=== PATIENT | female | born 1995 | race Caucasian/White ===

== ENCOUNTER 2021-06-23 00:51 | Outpatient (CLI) | payer OTHER | END 2021-06-23 09:05 | disposition home or self-care (01) | LOC: GENOP 00:51 | DX: O47.1 False labor at or after 37 completed weeks of gestation (principal); O99.343 Other mental disorders complicating pregnancy, third trimester; F32.A Depression, unspecified; O99.013 Anemia complicating pregnancy, third trimester; D64.9 Anemia, unspecified; O99.891 Other specified diseases and conditions complicating pregnancy; N89.8 Other specified noninflammatory disorders of vagina; Z3A.38 38 weeks gestation of pregnancy | CPT/HCPCS: 81001; 83518; 96360; 96361 ==

== ENCOUNTER 2021-06-27 10:28 | Inpatient (IN) | payer OTHER ==
[~2021-06-27] VITALS: Ht 172.7 cm; Wt 107.0 kg
[2021-06-29 06:25] LABS: HEMOGLOBIN 11.4 gm/dl (12.3-15.3); RED BLOOD COUNT 3.92 M/UL (4.00-5.10); WHITE BLOOD COUNT 13.5 K/UL (4.5-11.0)
[2021-06-29] MEDS ORDERED: FERROUS SULFAT325 MG PO (19:19)
[2021-06-29] MEDS ORDERED: DOCUSATE SODIU100 MG PO (19:19)
[2021-06-29] MEDS ORDERED: IBUPROFEN600 MG PO (19:19)
[2021-06-30 06:01] LABS: HEMOGLOBIN 10.6 gm/dl (12.3-15.3)
== END 2021-07-01 15:37 | disposition home or self-care (01) | DRG 807 ==
LOC: LBRF 10:28 → OB 06-29 05:32
PROVIDERS: Obstetrics & Gynecology; ADMIT Obstetrics & Gynecology
PROC: 3E033VJ Introduction of Other Hormone into Peripheral Vein, Percutaneous Approach (ICD-10-PCS; principal; 2021-06-29)
PROC: 10E0XZZ Delivery of Products of Conception, External Approach (ICD-10-PCS; 2021-06-29)
PROC: 10907ZC Drainage of Amniotic Fluid, Therapeutic from Products of Conception, Via Natural or Artificial Opening (ICD-10-PCS; 2021-06-29)
PROC: 4A1HXCZ Monitoring of Products of Conception, Cardiac Rate, External Approach (ICD-10-PCS; 2021-06-29)
PROC: 3E0234Z Introduction of Serum, Toxoid and Vaccine into Muscle, Percutaneous Approach (ICD-10-PCS; 2021-06-29)
DX: O98.42 Viral hepatitis complicating childbirth (principal); Z37.0 Single live birth; B19.20 Unspecified viral hepatitis C without hepatic coma; Z20.822 Contact with and (suspected) exposure to COVID-19; Z3A.39 39 weeks gestation of pregnancy; O69.81X0 Labor and delivery complicated by cord around neck, without compression, not applicable or unspecified; F17.210 Nicotine dependence, cigarettes, uncomplicated; Z23 Encounter for immunization
CPT/HCPCS: 36415; 51702; 81001; 85014; 85018; 85025; 90686; 90715; J7120; U0003